=== PATIENT | female | born 1950 | race Caucasian/White ===

== ENCOUNTER 2018-01-16 12:09 | Emergency (ER) | payer SELFPAY ==
[~2018-01-16] VITALS: Ht 165.1 cm; Wt 79.5 kg
[2018-01-16] MEDS ORDERED: HYDR-309 (12:23)
[2018-01-16] MEDS ORDERED: VITAD1000 PO (12:24)
[2018-01-16] MEDS ORDERED: SIMV-260 PO (12:24)
[2018-01-16 12:26] VITALS: BP 102/61
== END 2018-01-16 14:47 | disposition left against medical advice (07) ==
LOC: EMS 12:11
DX: T25.032A Burn of unspecified degree of left toe(s) (nail), initial encounter (principal); X11.8XXA Contact with other hot tap-water, initial encounter; Y93.89 Activity, other specified; Y92.89 Other specified places as the place of occurrence of the external cause; Y99.8 Other external cause status; Z53.21 Procedure and treatment not carried out due to patient leaving prior to being seen by health care provider